=== PATIENT | male | born 1995 | race African-American/Black ===

== ENCOUNTER 2018-03-02 16:01 | Emergency (ER) | payer MEDICAID ==
[~2018-03-02] VITALS: Ht 180.3 cm; Wt 76.0 kg
[2018-03-02] MEDS ORDERED: SODIUM CHLORIDE 0.9% 1,000 ML IV ONE (16:16)
[2018-03-02] MEDS ORDERED: GLUCAGON,HUMAN RECOMBINANT 1MG/VIAL IV ONE (16:30)
[2018-03-02 17:51] LABS: BASOPHILS % 0.5 % (0.0-2.0); EOSINOPHILS % 3.7 % (0.0-5.0); HEMATOCRIT. 43.7 % (42.0-52.0); HEMOGLOBIN. 14.1 g/dL (14.0-18.0); LYMPHOCYTES % 14.1 % (20.0-50.0); MEAN CORPUSCULAR HEMOGLOBIN 23.4 pg (28.0-32.0); MEAN CORPUSCULAR VOLUME 72.5 fL (80.0-94.0); MEAN PLATELET VOLUME 7.7 fl (7.4-10.4); MONOCYTES % 5.9 % (2.0-8.0); NEUTROPHILS % 75.8 % (40.0-76.0); PLATELET 351 x1000/uL (130-400); RED BLOOD CELL COUNT 6.03 mill/uL (4.7-6.1); RED CELL DISTRIBUTION WIDTH 15.2 % (11.6-14.6)
[2018-03-02 17:54] LABS: CHLORIDE 104 mEq/L (98-107)
[2018-03-02 20:04] VITALS: BP 140/75
== END 2018-03-02 20:05 | disposition home or self-care (01) ==
LOC: ER 16:01
DX: T18.8XXA Foreign body in other parts of alimentary tract, initial encounter (principal); X58.XXXA Exposure to other specified factors, initial encounter; Y93.89 Activity, other specified; Y92.89 Other specified places as the place of occurrence of the external cause; Y99.8 Other external cause status
CPT/HCPCS: 36415; 70360; 71045; 80053; 82962; 85025; 93005; 96374; 99285; J1610; J7030; J7040; Z7610

== ENCOUNTER 2018-04-18 18:12 | Emergency (ER) | payer MEDICAID ==
[~2018-04-18] VITALS: Ht 180.3 cm; Wt 74.0 kg
[2018-04-18 19:08] LABS: BASOPHILS % 0.7 % (0.0-2.0); EOSINOPHILS % 0.6 % (0.0-5.0); HEMATOCRIT. 44.4 % (42.0-52.0); HEMOGLOBIN. 14.6 g/dL (14.0-18.0); LYMPHOCYTES % 29.8 % (20.0-50.0); MEAN CORPUSCULAR HEMOGLOBIN 23.1 pg (28.0-32.0); MEAN CORPUSCULAR VOLUME 70.3 fL (80.0-94.0); MEAN PLATELET VOLUME 7.4 fl (7.4-10.4); MONOCYTES % 10.7 % (2.0-8.0); NEUTROPHILS % 58.2 % (40.0-76.0); PLATELET 290 x1000/uL (130-400); RED BLOOD CELL COUNT 6.32 mill/uL (4.7-6.1); RED CELL DISTRIBUTION WIDTH 14.9 % (11.6-14.6)
[2018-04-18 19:11] LABS: CHLORIDE 99 mEq/L (98-107)
[2018-04-18 19:14] LABS: PROTHROMBIN TIME 10.4 sec (9.1-11.1)
[2018-04-18] MEDS ORDERED: IBUPROFEN 600MG TABLET PO NR (20:30)
[2018-04-18 21:17] VITALS: BP 130/79
== END 2018-04-18 21:19 | disposition home or self-care (01) ==
LOC: ER 18:12
DX: R07.89 Other chest pain (principal); J06.9 Acute upper respiratory infection, unspecified; R50.9 Fever, unspecified; J34.89 Other specified disorders of nose and nasal sinuses; F17.200 Nicotine dependence, unspecified, uncomplicated
CPT/HCPCS: 36415; 71045; 80053; 83880; 84484; 85025; 85610; 93005; 99285